=== PATIENT | male | born 1980 | race Caucasian/White ===

== ENCOUNTER 2019-06-30 17:38 | Emergency (ER) | payer SELFPAY ==
[~2019-06-30] VITALS: Ht 165.1 cm; Wt 104.3 kg
[2019-06-30 17:51] VITALS: BP 147/90; Ht 165.1 cm; Wt 104.3 kg
== END 2019-06-30 18:26 | disposition home or self-care (01) ==
LOC: ED 17:38
DX: J11.1 Influenza due to unidentified influenza virus with other respiratory manifestations (principal)